=== PATIENT | male | born 1955 | race Caucasian/White ===

== ENCOUNTER 2020-05-28 15:24 | Observation (INO) ==
[2020-05-28] MEDS ORDERED: Naloxone 0.4 MG/ML INJ IVP PRN (20:29)
[2020-05-28] MEDS ORDERED: 0.9 % Sodium Chloride 1,000 ML IVC SCH (20:30)
[2020-05-28] MEDS ORDERED: *HR* Dextrose 50 % in Water (Vial) 50 ML VIAL IVP PRN (22:38)
[2020-05-28] MEDS ORDERED: D5% in Water 1,000 ML IVC PRN (22:38)
[2020-05-28] MEDS ORDERED: Dextrose Gel 15 GM/37.5 ML TUBE PO PRN ×2 (22:38)
[2020-05-28] MEDS ORDERED: Acetaminophen 325 MG TABLET PO PRN (22:43)
[2020-05-28] MEDS: Acetaminophen 325 MG TABLET PO PRN (23:09)
[2020-05-29] MEDS: Insulin LISPRO 300 UNITS/3 ML VIAL SQ SCH ×4 (00:13→18:28)
[2020-05-29] MEDS: Acetaminophen 325 MG TABLET PO PRN ×2 (09:06→21:05)
[2020-05-29 09:32] LABS: Basophils % 0.7 %; Eosinophils # 0.1 K/mcL (0.0-0.6); Eosinophils % 2.5 %; Hematocrit 43.3 % (37.5-50.1); Hemoglobin 14.7 g/dL (12.9-16.9); INR 1.3; Immature Granulocytes % 0.2 % (0-4); Lymphocytes # 1.2 K/mcL (0.6-4.6); Lymphocytes % 29.5 %; Mean Corpuscular HGB Conc 33.9 g/dL (31.6-35.5); Mean Corpuscular Hemoglobin 31.3 pg (28.0-33.3); Mean Corpuscular Volume 92.1 fL (83.0-100.0); Mean Platelet Volume 10.4 fL (9.4-12.4); Monocytes # 0.6 K/mcL (0.0-1.3); Monocytes % 13.9 %; Neutrophils # 2.1 K/mcL (1.6-8.9); Platelet Count 172 K/mcL (140-400); Prothrombin Time 14.3 Seconds (9.4-12.1); Red Cell Distribution Width 13.2 % (11.5-14.5); Segmented Neutrophils % 53.2 %
[2020-05-29 09:34] LABS: Fibrinogen 448 mg/dL (169-393)
[2020-05-29 09:35] LABS: D-Dimer < 215 ng/mLFEU (0-500)
[2020-05-29 09:40] LABS: Alanine Aminotransferase 26 Units/L (7-52); Albumin/Globulin Ratio 1.6 (1.1-2.2); Alkaline Phosphatase 74 Units/L (34-104); Aspartate Amino Transferase 21 Units/L (13-39); BUN/Creatinine Ratio 17 (6-26); Bilirubin,Total 1.2 mg/dL (0.3-1.0); Blood Urea Nitrogen 15 mg/dL (8-23); C-Reactive Protein 25 mg/L (Less than 10); Calcium 8.7 mg/dL (8.6-10.3); Carbon Dioxide 25 mEq/L (23-29); Chloride 101 mEq/L (98-107); Globulin 2.5 g/dL (2.4-3.5); Glucose 143 mg/dL (70-105); Lactate Dehydrogenase 150 Units/L (140-271); Osmolality,Calculated 285 (280-300); Potassium 3.3 mEq/L (3.5-5.1); Sodium 136 mEq/L (136-145); Total Protein 6.5 g/dL (6.4-8.9); Troponin I < 0.03 ng/mL (< 0.04); eGFR For African Americans > 60 (> 60); eGFR For Non-African Americans > 60 (> 60)
[2020-05-29 09:58] LABS: Ferritin 981 ng/mL (20-250)
[2020-05-29 10:17] LABS: Estimated Average Glucose 252 mg/dl
[2020-05-29] MEDS: Isosorbide MONOnitrate (24 HR) 30 MG TAB.ER.24H PO SCH (13:31)
[2020-05-29 18:03] LABS: Bilirubin,Urine Negative (Negative); Blood,Urine Trace (Negative); Clarity,Urine Clear (Clear); Color,Urine Light-Yellow (Yellow); Glucose,Urine (UA) >=1000 mg/dL (Normal); Ketones,Urine 20 mg/dL (Negative); Leukocyte Esterase,Urine Negative (Negative); Mucus,Urine Few per lpf (None-Few); Nitrite,Urine Negative (Negative); Protein,Urine 100 mg/dL (Neg-Trace); RBC,Urine 0-3 per hpf (0-3); Specific Gravity,Urine > 1.030 (1.010-1.025); Squamous Epithelial Cell,Urine Few per hpf (None-Few); Urobilinogen,Urine Normal (Normal); WBC,Urine 0-3 per hpf (0-3)
[2020-05-29] MEDS ORDERED: Insulin DETEMIR 100 UNIT/ML X5UNITS SQ SCH (21:00)
[2020-05-29] MEDS ORDERED: Gabapentin 300 MG CAPSULE PO SCH (21:00)
[2020-05-29] MEDS: Metoprolol 100 MG TABLET PO SCH (21:06)
[2020-05-29] MEDS: Lisinopril-HCTZ 20-12.5mg TABLET PO SCH (21:06)
[2020-05-29] MEDS: cloNIDine HCL 0.1 MG TABLET PO SCH (21:06)
[2020-05-29] MEDS ORDERED: Melatonin 3 MG TABLET PO ONE (23:15)
[2020-05-30 07:03] LABS: BUN/Creatinine Ratio 18 (6-26); Blood Urea Nitrogen 15 mg/dL (8-23); Calcium 8.9 mg/dL (8.6-10.3); Carbon Dioxide 24 mEq/L (23-29); Chloride 103 mEq/L (98-107); Glucose 222 mg/dL (70-105); Lactate Dehydrogenase 135 Units/L (140-271); Osmolality,Calculated 288 (280-300); Potassium 3.7 mEq/L (3.5-5.1); Sodium 135 mEq/L (136-145); eGFR For African Americans > 60 (> 60); eGFR For Non-African Americans > 60 (> 60)
[2020-05-30 07:16] LABS: Ferritin 812 ng/mL (20-250)
[2020-05-30 08:41] VITALS: BP 131/79
[2020-05-30] MEDS ORDERED: Loratadine 10 MG TABLET PO SCH (09:00)
[2020-05-30] MEDS: Isosorbide MONOnitrate (24 HR) 30 MG TAB.ER.24H PO SCH (09:35)
[2020-05-30] MEDS: Metoprolol 100 MG TABLET PO SCH (09:35)
[2020-05-30] MEDS: Lisinopril-HCTZ 20-12.5mg TABLET PO SCH (09:35)
[2020-05-30] MEDS: cloNIDine HCL 0.1 MG TABLET PO SCH (09:36)
[2020-05-30] MEDS: Insulin LISPRO 300 UNITS/3 ML VIAL SQ SCH ×2 (09:37→11:23)
[2020-05-30 10:14] LABS: C-Reactive Protein 11 mg/L (Less than 10)
[2020-05-30] MEDS ORDERED: *HR* Rivaroxaban 10 MG TABLET PO SCH (17:00)
== END 2020-05-30 11:52 | disposition home or self-care (01) ==
LOC: 2NENU → SUATTDRO 18:07
PROVIDERS: ADMIT Internal Medicine; ATTEND Family Medicine

== ENCOUNTER 2021-08-07 13:55 | Observation (INO) ==
[2021-08-07 16:05] LABS: Basophils # 0.1 K/mcL (0.0-0.2); Basophils % 1.3 %; Eosinophils # 0.3 K/mcL (0.0-0.6); Eosinophils % 5.6 %; Hematocrit 43.3 % (37.5-50.1); Hemoglobin 15.3 g/dL (12.9-16.9); Immature Granulocytes % 0.3 % (0-4); Lymphocytes # 1.7 K/mcL (0.6-4.6); Lymphocytes % 28.7 %; Mean Corpuscular HGB Conc 35.3 g/dL (31.6-35.5); Mean Corpuscular Hemoglobin 31.8 pg (28.0-33.3); Mean Platelet Volume 9.9 fL (9.4-12.4); Monocytes # 0.5 K/mcL (0.0-1.3); Monocytes % 8.5 %; Neutrophils # 3.3 K/mcL (1.6-8.9); Platelet Count 256 K/mcL (140-400); Red Blood Count 4.81 M/mcL (4.19-5.50); Red Cell Distribution Width 12.4 % (11.5-14.5); Segmented Neutrophils % 55.6 %
[2021-08-07 16:28] LABS: BUN/Creatinine Ratio 17 (6-26); Blood Urea Nitrogen 18 mg/dL (8-23); Calcium 9.8 mg/dL (8.6-10.3); Carbon Dioxide 29 mEq/L (23-29); Chloride 94 mEq/L (98-107); Glucose 303 mg/dL (70-105); Osmolality,Calculated 287 (280-300); Potassium 3.9 mEq/L (3.5-5.1); Sodium 132 mEq/L (136-145); eGFR For African Americans > 60 (> 60); eGFR For Non-African Americans > 60 (> 60)
[2021-08-07 17:29] LABS: VBG HCO3 32 mEq/L (21-27); VBG PCO2 61 mmHg (41-51); VBG PH 7.32 pH Units (7.32-7.42); VBG PO2 34 mmHg (25-50)
[2021-08-07] MEDS ORDERED: Isovue-370 500 ML BOTTLE IVP ONE (18:08)
[2021-08-07] MEDS ORDERED: Aspirin 81 MG TAB.CHEW PO SCH (18:15)
[2021-08-07 18:42] LABS: Influenza A PCR Negative (Negative); Influenza B PCR Negative (Negative); Resp. Syncytial Virus PCR Negative (Negative)
[2021-08-07 18:55] LABS: SARS-CoV-2 by PCR (In House) Negative (Negative)
[2021-08-07] MEDS ORDERED: Aspirin 325 MG TABLET PO ONE (19:02)
[2021-08-07] MEDS ORDERED: Naloxone 0.4 MG/ML INJ IVP PRN (20:10)
[2021-08-07] MEDS ORDERED: Acetaminophen 325 MG TABLET PO PRN (20:10)
[2021-08-07] MEDS ORDERED: Ondansetron 4 MG/2 ML VIAL IVP PRN (20:10)
[2021-08-07] MEDS ORDERED: Ipratropium/Albuterol Neb 3 ML IH PRN (20:12)
[2021-08-07] MEDS ORDERED: D5% in Water 1,000 ML IVC PRN (20:14)
[2021-08-07] MEDS ORDERED: Dextrose Gel 15 GM/37.5 ML TUBE PO PRN ×2 (20:14)
[2021-08-07] MEDS ORDERED: *HR* Dextrose 50 % in Water (Syg) 50 ML SYRINGE IVP PRN (20:14)
[2021-08-07] MEDS: Insulin LISPRO 300 UNITS/3 ML VIAL SUBQ SCH ×2 (21:49→22:12)
[2021-08-07] MEDS ORDERED: DICLOFENAC SODIUM 20 GM TP PRN (22:19)
[2021-08-08 02:12] LABS: Basophils # 0.1 K/mcL (0.0-0.2); Basophils % 1.2 %; Eosinophils # 0.4 K/mcL (0.0-0.6); Eosinophils % 6.2 %; Hematocrit 43.1 % (37.5-50.1); Hemoglobin 14.8 g/dL (12.9-16.9); Immature Granulocytes % 0.3 % (0-4); Lymphocytes # 2.2 K/mcL (0.6-4.6); Mean Corpuscular HGB Conc 34.3 g/dL (31.6-35.5); Mean Corpuscular Hemoglobin 30.8 pg (28.0-33.3); Mean Corpuscular Volume 89.6 fL (83.0-100.0); Monocytes # 0.7 K/mcL (0.0-1.3); Monocytes % 10.5 %; Neutrophils # 3.2 K/mcL (1.6-8.9); Platelet Count 230 K/mcL (140-400); Red Blood Count 4.81 M/mcL (4.19-5.50); Red Cell Distribution Width 12.5 % (11.5-14.5); Segmented Neutrophils % 48.8 %; White Blood Count 6.6 K/mcL (4.3-11.1)
[2021-08-08 02:20] LABS: Albumin 4.1 g/dL (3.5-5.7); Albumin/Globulin Ratio 1.6 (1.1-2.2); Bilirubin,Direct 0.1 mg/dL (0.0-0.2); Bilirubin,Indirect 0.6 mg/dL (0.0-1.0); Bilirubin,Total 0.7 mg/dL (0.3-1.0); Globulin 2.5 g/dL (2.4-3.5); Total Protein 6.6 g/dL (6.4-8.9)
[2021-08-08 02:22] LABS: BUN/Creatinine Ratio 17 (6-26); Blood Urea Nitrogen 16 mg/dL (8-23); Calcium 9.4 mg/dL (8.6-10.3); Carbon Dioxide 27 mEq/L (23-29); Chloride 97 mEq/L (98-107); Chol/HDL Ratio 5.7 (0-4.9); Cholesterol 178 mg/dL (< 200); Glucose 186 mg/dL (70-105); HDL Cholesterol 31 mg/dL (40-59); LDL Cholesterol,Calculated 69 mg/dL (< 100); Magnesium 1.6 mg/dL (1.6-2.6); Osmolality,Calculated 282 (280-300); Potassium 3.3 mEq/L (3.5-5.1); Sodium 133 mEq/L (136-145); Triglycerides 389 mg/dL (< 150); eGFR For African Americans > 60 (> 60); eGFR For Non-African Americans > 60 (> 60)
[2021-08-08 02:43] LABS: Folate 9.2 ng/mL (3.0-16.0)
[2021-08-08 03:28] LABS: INR 1.5; Prothrombin Time 16.3 Seconds (9.4-12.1)
[2021-08-08] MEDS ORDERED: Insulin NPH/REG 70/30 300 UNIT/3 ML VIAL SUBQ SCH ×2 (09:00→10:00)
[2021-08-08] MEDS: Isosorbide MONOnitrate (24 HR) 30 MG TAB.ER.24H PO SCH (09:51)
[2021-08-08] MEDS: Metoprolol 100 MG TABLET PO SCH ×2 (09:51→20:11)
[2021-08-08] MEDS: cloNIDine HCL 0.1 MG TABLET PO SCH (09:52)
[2021-08-08] MEDS: *HR* Rivaroxaban 10 MG TABLET PO SCH (09:52)
[2021-08-08] MEDS: Gabapentin 300 MG CAPSULE PO SCH ×4 (09:52→22:01)
[2021-08-08] MEDS: Insulin LISPRO 300 UNITS/3 ML VIAL SUBQ SCH ×4 (09:52→20:11)
[2021-08-08] MEDS: Loratadine 10 MG TABLET PO SCH (09:52)
[2021-08-08] MEDS: Lisinopril-HCTZ 20-12.5mg TABLET PO SCH ×2 (09:52→20:11)
[2021-08-08 10:10] LABS: Estimated Average Glucose 292 mg/dl; Hemoglobin A1C 11.8 %
[2021-08-08] MEDS: Insulin NPH/REG 70/30 100 UNIT/ML (x5UNIT) SUBQ SCH ×2 (10:49→17:24)
[2021-08-08] MEDS ORDERED: Perflutren Lipid Microsphere 1.3 ML in 0.9 % Sodium Chloride 8.7 ML IVP PRN (11:13)
[2021-08-08] MEDS: Cyanocobalamin (B-12) 1,000 MCG TABLET PO SCH (12:29)
[2021-08-09 01:35] LABS: C.difficile Toxin A/B Gene PCR Not detected (Not detect); Campylobacter by PCR Not detected (Not detect); Plesiomonas shigelloides PCR Not detected (Not detect); Salmonella PCR Not detected (Not detect); Vibrio PCR Not detected (Not detect); Vibrio cholerae PCR Not detected (Not detect)
[2021-08-09 01:36] LABS: Adenovirus F 40/41 PCR Not detected (Not detect); Astrovirus PCR Not detected (Not detect); Cryptosporidium by PCR Not detected (Not detect); Cyclospora cayetanensis PCR Not detected (Not detect); E. coli O157 by PCR Not detected (Not detect); Entamoeba histolytica PCR Not detected (Not detect); Enteroaggregative E.coli(EAEC) Not detected (Not detect); Enteropathogenic E.coli(EPEC) Not detected (Not detect); Enterotoxigenic E.coli (ETEC) DETECTED (Not detect); Giardia lamblia PCR Not detected (Not detect); Norovirus GI/GII PCR Not detected (Not detect); Rotavirus A PCR Not detected (Not detect); Sapovirus PCR Not detected (Not detect); Shig/EnteroinvasiveE coli EIEC Not detected (Not detect); Shigalike tox-prod E coli STEC Not detected (Not detect); Yersinia enterocolitica PCR Not detected (Not detect)
[2021-08-09 06:22] LABS: Bacteria,Urine Few per hpf (None-Few); Bilirubin,Urine Negative (Negative); Blood,Urine Negative (Negative); Clarity,Urine Clear (Clear); Color,Urine Light-Yellow (Yellow); Glucose,Urine (UA) 150 mg/dL (Normal); Hyaline Casts,Urine Few per lpf (None Seen); Ketones,Urine Negative (Negative); Leukocyte Esterase,Urine Negative (Negative); Mucus,Urine Few per lpf (None-Few); Nitrite,Urine Negative (Negative); Protein,Urine 100 mg/dL (Neg-Trace); RBC,Urine 0-3 per hpf (0-3); Specific Gravity,Urine 1.014 (1.010-1.025); Squamous Epithelial Cell,Urine Few per hpf (None-Few); Urobilinogen,Urine Normal (Normal)
[2021-08-09] MEDS: Insulin LISPRO 300 UNITS/3 ML VIAL SUBQ SCH ×4 (07:52→20:46)
[2021-08-09] MEDS: Insulin NPH/REG 70/30 100 UNIT/ML (x5UNIT) SUBQ SCH ×2 (08:39→17:53)
[2021-08-09] MEDS: Metoprolol 100 MG TABLET PO SCH ×2 (08:40→20:45)
[2021-08-09] MEDS: Cyanocobalamin (B-12) 1,000 MCG TABLET PO SCH (08:41)
[2021-08-09] MEDS: Gabapentin 300 MG CAPSULE PO SCH ×4 (08:41→20:45)
[2021-08-09] MEDS: *HR* Rivaroxaban 10 MG TABLET PO SCH (08:41)
[2021-08-09] MEDS: Loratadine 10 MG TABLET PO SCH (08:41)
[2021-08-09] MEDS: Lisinopril-HCTZ 20-12.5mg TABLET PO SCH ×2 (08:41→20:45)
[2021-08-09] MEDS: Isosorbide MONOnitrate (24 HR) 30 MG TAB.ER.24H PO SCH (08:41)
[2021-08-09] MEDS: cloNIDine HCL 0.1 MG TABLET PO SCH (08:41)
[2021-08-09] MEDS ORDERED: levoFLOXacin 750 MG TABLET PO ONE (13:07)
[2021-08-10 03:44] VITALS: TEMP 98.1
[2021-08-10 07:10] VITALS: BP 143/82; PULSE 76; O2SAT 93
[2021-08-10] MEDS: Insulin LISPRO 300 UNITS/3 ML VIAL SUBQ SCH (07:58)
[2021-08-10] MEDS: Insulin NPH/REG 70/30 100 UNIT/ML (x5UNIT) SUBQ SCH (08:06)
[2021-08-10] MEDS: Metoprolol 100 MG TABLET PO SCH (08:07)
[2021-08-10] MEDS: Lisinopril-HCTZ 20-12.5mg TABLET PO SCH (08:07)
[2021-08-10] MEDS: cloNIDine HCL 0.1 MG TABLET PO SCH (08:07)
[2021-08-10] MEDS: Loratadine 10 MG TABLET PO SCH (08:07)
[2021-08-10] MEDS: Isosorbide MONOnitrate (24 HR) 30 MG TAB.ER.24H PO SCH (08:07)
[2021-08-10] MEDS: *HR* Rivaroxaban 10 MG TABLET PO SCH (08:07)
[2021-08-10] MEDS: Gabapentin 300 MG CAPSULE PO SCH (08:08)
[2021-08-10] MEDS: Cyanocobalamin (B-12) 1,000 MCG TABLET PO SCH (08:08)
[2021-08-10] MEDS ORDERED: (Dulaglutide [Trulicity] 0.75 MG/0.5 ML Pen.Injctr) SQ SCH (22:19)
== END 2021-08-10 10:00 | disposition home or self-care (01) ==
LOC: 3BNU 13:55 → EMEROOARM 13:55 → 3BNU 20:20
PROVIDERS: ADMIT Internal Medicine; ATTEND Internal Medicine